=== PATIENT | female | born 1995 | race Two or more races ===

== ENCOUNTER 2017-04-26 15:10 | Emergency (ER) | payer BC, MEDICAID ==
[~2017-04-26] VITALS: Ht 154.9 cm; Wt 57.6 kg
[~2017-04-26 15:10] MED LIST: MOTRIN
[2017-04-26 15:17] VITALS: BP 126/61
== END 2017-04-26 19:24 | disposition left against medical advice (07) ==
LOC: ER 15:13
DX: R51 Headache (principal); Z53.21 Procedure and treatment not carried out due to patient leaving prior to being seen by health care provider

== ENCOUNTER 2020-07-17 19:45 | Emergency (ER) | payer BC, MEDICAID ==
[~2020-07-17] VITALS: Ht 154.9 cm; Wt 61.2 kg
[2020-07-18 00:30] VITALS: BP 134/85
== END 2020-07-18 00:35 | disposition left against medical advice (07) ==
LOC: ER 19:45
DX: S16.1XXA Strain of muscle, fascia and tendon at neck level, initial encounter (principal); S00.83XA Contusion of other part of head, initial encounter; V43.52XA Car driver injured in collision with other type car in traffic accident, initial encounter; Y93.89 Activity, other specified; Y92.488 Other paved roadways as the place of occurrence of the external cause; Y99.8 Other external cause status
CPT/HCPCS: 70450; 70486; 72125